=== PATIENT | male | born 1965 | race Asian ===

== ENCOUNTER → 2018-07-28 | Outpatient (CLI) | payer BC ==
[2018-07-28 10:04] LABS: ALBUMIN 3.9 GM/DL (3.2-5.2); ALBUMIN/GLOBULIN RATIO 1.08 (1.00-1.93); ALKALINE PHOSPHATASE 66 U/L (45-117); ALT/SGPT 85 U/L (12-78); ANION GAP 8 MEQ/L (8-16); AST/SGOT 36 U/L (7-37); BILIRUBIN,TOTAL 0.9 MG/DL (0.2-1.0); BLOOD UREA NITROGEN 15 MG/DL (7-18); CARBON DIOXIDE LEVEL 26 MEQ/L (21-32); CHLORIDE LEVEL 107 MEQ/L (98-107); CHOLESTEROL LEVEL 165 MG/DL (<200); CREATININE FOR GFR 1.02 MG/DL (0.70-1.30); GLOMERULAR FILTRATION RATE > 60.0 (>56); GLUCOSE, FASTING 97 MG/DL (70-100); HDL CHOLESTEROL 44 MG/DL (>40); LDL CHOLESTEROL 86 MG/DL (<100); NON-HDL-C 121 MG/DL; POTASSIUM SERUM 3.8 MEQ/L (3.5-5.1); SODIUM LEVEL 141 MEQ/L (136-145); TOTAL PROTEIN 7.5 GM/DL (6.4-8.2); TRIGLYCERIDES LEVEL 176 MG/DL (<150)
== END ==
LOC: M LAB 09:06
DX: E78.5 Hyperlipidemia, unspecified (principal); R74.0 Nonspecific elevation of levels of transaminase and lactic acid dehydrogenase [LDH]
CPT/HCPCS: 80053

== ENCOUNTER → 2018-11-19 | Outpatient (CLI) | payer BC ==
[~2018-11-19] MED LIST: ATOR1TAB21 PO; FENO160T10 PO; FINA1TAB12 PO; FISH100049 PO; GLUC500C5 PO
[2018-11-19 10:07] LABS: ALBUMIN 3.9 GM/DL (3.2-5.2); ALT/SGPT 93 U/L (12-78); BILIRUBIN,TOTAL 0.9 MG/DL (0.2-1.0); BLOOD UREA NITROGEN 19 MG/DL (7-18); CALCIUM LEVEL 9.2 MG/DL (8.5-10.1); CARBON DIOXIDE LEVEL 26 MEQ/L (21-32); CHLORIDE LEVEL 106 MEQ/L (98-107); CHOLESTEROL LEVEL 194 MG/DL (<200); CHOLESTEROL RISK RATIO 4.409 (<5); CREATININE FOR GFR 1.06 MG/DL (0.70-1.30); GLOMERULAR FILTRATION RATE > 60.0 (>56); GLUCOSE, FASTING 100 MG/DL (70-100); HDL CHOLESTEROL 44 MG/DL (>40); LDL CHOLESTEROL 124 MG/DL (<100); NON-HDL-C 150 MG/DL; SODIUM LEVEL 139 MEQ/L (136-145); TOTAL PROTEIN 7.6 GM/DL (6.4-8.2); TRIGLYCERIDES LEVEL 131 MG/DL (<150)
== END ==
LOC: M LAB 08:39
PROVIDERS: ATTEND Internal Medicine
DX: E78.5 Hyperlipidemia, unspecified (principal)

== ENCOUNTER → 2019-02-23 | Outpatient (CLI) | payer BC ==
[2019-02-23 10:51] LABS: ALT/SGPT 139 U/L (12-78); BILIRUBIN,TOTAL 0.8 MG/DL (0.2-1.0); BLOOD UREA NITROGEN 14 MG/DL (7-18); CALCIUM LEVEL 8.9 MG/DL (8.5-10.1); CARBON DIOXIDE LEVEL 26 MEQ/L (21-32); CHLORIDE LEVEL 108 MEQ/L (98-107); CHOLESTEROL LEVEL 175 MG/DL (<200); CREATININE FOR GFR 1.05 MG/DL (0.70-1.30); GLOMERULAR FILTRATION RATE > 60.0 (>56); GLUCOSE, FASTING 113 MG/DL (70-100); HDL CHOLESTEROL 45 MG/DL (>40); POTASSIUM SERUM 3.6 MEQ/L (3.5-5.1); SODIUM LEVEL 140 MEQ/L (136-145); TRIGLYCERIDES LEVEL 111 MG/DL (<150)
[2019-02-23 10:52] LABS: ALBUMIN 3.9 GM/DL (3.2-5.2); CHOLESTEROL RISK RATIO 3.888 (<5); LDL CHOLESTEROL 108 MG/DL (<100); NON-HDL-C 130 MG/DL; TOTAL PROTEIN 7.7 GM/DL (6.4-8.2)
== END ==
LOC: M LAB 09:35
PROVIDERS: ATTEND Internal Medicine
DX: E78.5 Hyperlipidemia, unspecified (principal); R74.0 Nonspecific elevation of levels of transaminase and lactic acid dehydrogenase [LDH]

== ENCOUNTER → 2019-03-18 | Outpatient (CLI) | payer BC ==
--- NOTE | 2019-03-18 07:41 | REP ---
Clinical: Abnormal liver function tests and elevated transaminase levels. Technique: Real time thompson scale ultrasound examination using curved array transducer. Comparison: 12/20/2009 Findings: Liver is markedly increased echogenicity with decreased through transmission suggesting fatty infiltration and/or hepatocellular disease. The pancreas is incompletely evaluated due to technical factors. Main portal vein measures 17 mm diameter and is slightly increased from normal. The gallbladder is without gallstones, wall thickening, or pericholecystic fluid. A small 4 mm gallbladder polyp is suggested. No biliary ductal dilatation is identified and the common bile duct measures 6 mm diameter. Right kidney is normal in reniform shape without hydronephrosis and measures 10.6 x 6.5 x 5.7 cm. Visualized abdominal aorta normal. No ascites. Impression: Hepatic steatosis and hepatocellular disease suspected. 4 mm nonspecific gallbladder polyp. Electronically Signed by Mauricio Bateman MD 03/18/2019 07:32 A
== END ==
LOC: M RAD 06:43
PROVIDERS: ATTEND Internal Medicine
DX: R74.0 Nonspecific elevation of levels of transaminase and lactic acid dehydrogenase [LDH] (principal); K82.4 Cholesterolosis of gallbladder

== ENCOUNTER → 2019-08-31 | Outpatient (CLI) | payer BC ==
[2019-08-31 09:14] LABS: ALBUMIN 3.6 GM/DL (3.2-5.2); ALT/SGPT 89 U/L (12-78); BILIRUBIN,TOTAL 0.7 MG/DL (0.2-1.0); BLOOD UREA NITROGEN 12 MG/DL (7-18); CALCIUM LEVEL 8.9 MG/DL (8.5-10.1); CARBON DIOXIDE LEVEL 23 MEQ/L (21-32); CHLORIDE LEVEL 110 MEQ/L (98-107); CHOLESTEROL LEVEL 172 MG/DL (<200); CHOLESTEROL RISK RATIO 3.822 (<5); CREATININE FOR GFR 0.97 MG/DL (0.70-1.30); GLOMERULAR FILTRATION RATE > 60.0 (>56); GLUCOSE, FASTING 95 MG/DL (70-100); HDL CHOLESTEROL 45 MG/DL (>40); LDL CHOLESTEROL 94 MG/DL (<100); NON-HDL-C 127 MG/DL; POTASSIUM SERUM 3.7 MEQ/L (3.5-5.1); SODIUM LEVEL 141 MEQ/L (136-145); TOTAL PROTEIN 7.2 GM/DL (6.4-8.2); TRIGLYCERIDES LEVEL 165 MG/DL (<150)
== END ==
LOC: M LAB 08:05
PROVIDERS: ATTEND Internal Medicine
DX: E78.5 Hyperlipidemia, unspecified (principal); R74.0 Nonspecific elevation of levels of transaminase and lactic acid dehydrogenase [LDH]

== ENCOUNTER → 2020-07-30 | Outpatient (REF) | payer SELFPAY | LOC: M LABSMTC 07-28 08:14 → EDSTATUS 11:10 → M LABSMTC 14:37 | PROVIDERS: ATTEND Pediatrics | DX: Z20.828 Contact with and (suspected) exposure to other viral communicable diseases (principal) ==

== ENCOUNTER → 2020-08-27 | Outpatient (CLI) | payer BC ==
[2020-08-27 11:01] LABS: ALT/SGPT 98 U/L (12-78); BILIRUBIN,TOTAL 0.8 MG/DL (0.2-1.0); BLOOD UREA NITROGEN 12 MG/DL (7-18); CALCIUM LEVEL 9.4 MG/DL (8.5-10.1); CARBON DIOXIDE LEVEL 26 MEQ/L (21-32); CHLORIDE LEVEL 108 MEQ/L (98-107); CHOLESTEROL LEVEL 198 MG/DL (<200); CHOLESTEROL RISK RATIO 3.666 (<5); CREATININE FOR GFR 1.06 MG/DL (0.70-1.30); GLOMERULAR FILTRATION RATE > 60.0 (>56); GLUCOSE, FASTING 115 MG/DL (70-100); HDL CHOLESTEROL 54 MG/DL (>40); LDL CHOLESTEROL 112 MG/DL (<100); NON-HDL-C 144 MG/DL; SODIUM LEVEL 139 MEQ/L (136-145); TOTAL PROTEIN 7.7 GM/DL (6.4-8.2); TRIGLYCERIDES LEVEL 159 MG/DL (<150)
== END ==
LOC: M LAB 10:01
PROVIDERS: ATTEND Internal Medicine
DX: E78.5 Hyperlipidemia, unspecified (principal)

== ENCOUNTER → 2020-10-20 | Outpatient (CLI) | payer BC ==
[~2020-10-20] MED LIST changes: +FISH1000 PO; +GNP1000T11 PO; +LOSA25TA14 PO
== END ==
LOC: M LABSMTC 08:19
PROVIDERS: ATTEND Anesthesiology
DX: Z01.812 Encounter for preprocedural laboratory examination (principal); Z20.822 Contact with and (suspected) exposure to COVID-19

== ENCOUNTER 2020-10-25 09:42 | Day surgery (SDC) | payer BC ==
[~2020-10-25] VITALS: Ht 165.1 cm; Wt 90.7 kg
[~2020-10-25 09:42] MED LIST changes: +LIDOCAINE 2% 100MG/5ML SDV (FOR ANES.) As Ordered ONE; +NS 1,000 ML IV ONE; +fentaNYL 100 MCG/2 ML INJECTION (J3010) As Ordered ONE; +propofoL 200 MG/20 ML VIAL As Ordered ONE
--- NOTE | 2020-10-25 11:36 | ROOR ---
Patient Name: Inga Aceves Procedure Date: 10/25/2020 11:22 AM Date of : 1965 Age: 55 Room: [facility] Gender: Male Note Status: Finalized Procedure: Upper GI endoscopy Indications: Heartburn, Nausea Providers: Daniel SCHMIDT MD Referring MD: MADHAVI ROONEY MD Requesting Provider: Medicines: Monitored Anesthesia Care Complications: No immediate complications. Procedure: Pre-Anesthesia Assessment: - The heart rate, respiratory rate, oxygen saturations, blood pressure, adequacy of pulmonary ventilation, and response to care were monitored throughout the procedure. The Endoscope was introduced through the mouth, and advanced to the second part of duodenum. The upper GI endoscopy was accomplished without difficulty. The patient tolerated the procedure well. Findings: Mild esophagitis was found at the gastroesophageal junction. Biopsies were taken with a cold forceps for histology. The exam of the esophagus was otherwise normal. The entire examined stomach was normal. Biopsies were taken with a cold forceps for Helicobacter pylori testing. The examined duodenum was normal. Impression: - Mild reflux esophagitis. Biopsied. - Otherwise normal esophagus. - Normal stomach. Biopsied. - Normal examined duodenum. Recommendation: - Follow an antireflux regimen. - Use Prilosec (omeprazole) 20 mg PO daily for 3 months. - (the script was sent to your pharmacy on file) Procedure Code(s): --- Professional --- 09631, Esophagogastroduodenoscopy, flexible, transoral; with biopsy, single or multiple Diagnosis Code(s): --- Professional --- R11.0, Nausea R12, Heartburn K20.9, Esophagitis, unspecified CPT copyright 2019 [employer]. All rights reserved. The codes documented in this report are preliminary and upon ion exchange operator review may be revised to meet current compliance requirements. Daniel Schmidt MD Daniel SCHMIDT MD 10/25/2020 11:36:07 AM Electronically signed by Daniel SCHMIDT MD Number of Addenda: 0 Note Initiated On: 10/25/2020 11:22 AM Estimated Blood Loss: Estimated blood loss: none.
[2020-10-25] MEDS ORDERED: ePHEDrine SULFATE 25 MG/5 ML(5MG/ML) SYRINGE As Ordered ONE (11:40)
--- NOTE | 2020-10-25 12:25 | ROOR ---
Patient Name: Inga Aceves Procedure Date: 10/25/2020 11:22 AM Date of : 1965 Age: 55 Room: [facility] Gender: Male Note Status: Finalized Procedure: Colonoscopy Indications: High risk colon cancer surveillance: Personal history of colonic polyps, Last colonoscopy: July 2015 Providers: Daniel SCHMIDT MD Referring MD: MADHAVI ROONEY MD Requesting Provider: Medicines: Monitored Anesthesia Care Complications: No immediate complications. Procedure: Pre-Anesthesia Assessment: - The heart rate, respiratory rate, oxygen saturations, blood pressure, adequacy of pulmonary ventilation, and response to care were monitored throughout the procedure. The Colonoscope was introduced through the anus and advanced to the cecum, identified by appendiceal orifice and ileocecal valve. The Colonoscope was introduced through the anus and advanced to the cecum, identified by appendiceal orifice and ileocecal valve. The colonoscopy was somewhat difficult due to a redundant colon. Successful completion of the procedure was aided by changing the patient's position and changing endoscopes. The patient tolerated the procedure well. The quality of the bowel preparation was good. Findings: The perianal and digital rectal examinations were normal. A localized area of granular mucosa and spasm was found in the cecum. Biopsies were taken with a cold forceps for histology. Multiple medium-mouthed diverticula were found in the sigmoid colon and descending colon. Small Internal Hemorrhoids. Impression: - An area of spasm and mucosal granularity in the cecum (suspect benign prolapsing ileal mucosa). Biopsied. - Diverticulosis in the sigmoid colon and in the descending colon. - Small Internal Hemorrhoids. - The colon is otherwise normal. Recommendation: - Await pathology results. - In view of slightly suboptimal visualisation of the ileo cecal area (spasm/prolapsing ileal mucosa), would suggest a repeat colonoscopy in about 2-3 years. To be discussed after biopsies reviewed. Procedure Code(s): --- Professional --- 55338, Colonoscopy, flexible; with biopsy, single or multiple Diagnosis Code(s): --- Professional --- K57.30, Diverticulosis of large intestine without perforation or abscess without bleeding K63.89, Other specified diseases of intestine Z86.010, Personal history of colonic polyps CPT copyright 2019 [employer]. All rights reserved. The codes documented in this report are preliminary and upon carnallite plant operator review may be revised to meet current compliance requirements. Daniel Schmidt MD Daniel SCHMIDT MD 10/25/2020 12:24:57 PM Electronically signed by Daniel SCHMIDT MD Number of Addenda: 0 Note Initiated On: 10/25/2020 11:22 AM Estimated Blood Loss: Estimated blood loss: none.
[2020-10-25] MEDS ORDERED: propofoL 200 MG/20 ML VIAL As Ordered ONE (12:28)
[2020-10-25 12:45] VITALS: BP 145/87
== END 2020-10-25 12:58 | disposition home or self-care (01) ==
LOC: M OPP 09:42
PROVIDERS: ATTEND Internal Medicine Gastroenterology
DX: Z12.11 Encounter for screening for malignant neoplasm of colon (principal); Z86.010 Personal history of colon polyps; K63.89 Other specified diseases of intestine; K57.30 Diverticulosis of large intestine without perforation or abscess without bleeding; K64.8 Other hemorrhoids; K20.90 Esophagitis, unspecified without bleeding; R12 Heartburn; R11.0 Nausea; Z79.899 Other long term (current) drug therapy
CPT/HCPCS: 43239; 45380; 88305; 88342; J3010

== ENCOUNTER → 2020-12-24 | Outpatient (REF) | payer BC ==
[~2020-12-24] MED LIST changes: -LIDOCAINE 2% 100MG/5ML SDV (FOR ANES.) As Ordered ONE; -NS 1,000 ML IV ONE; -fentaNYL 100 MCG/2 ML INJECTION (J3010) As Ordered ONE; -propofoL 200 MG/20 ML VIAL As Ordered ONE
== END ==
LOC: M LAB REF 08:52
PROVIDERS: ATTEND Physician Assistant Medical
DX: B96.81 Helicobacter pylori [H. pylori] as the cause of diseases classified elsewhere (principal)

== ENCOUNTER → 2021-01-01 | Outpatient (REF) | LOC: M LABSMTC 10:30 | PROVIDERS: ATTEND Pediatrics | DX: Z20.828 Contact with and (suspected) exposure to other viral communicable diseases (principal) ==

== ENCOUNTER → 2021-01-03 | Outpatient (CLI) | payer BC ==
--- NOTE | 2021-01-03 13:13 | REP ---
INDICATION: ACUTE BRONCHITIS COMPARISON: None. TECHNIQUE: PA and lateral. FINDINGS: The mediastinum and cardiac silhouette are normal. The lung elam are clear and without acute consolidation, effusion, or pneumothorax. The skeletal structures are intact and normal. IMPRESSION: No acute cardiopulmonary process. <Electronically signed by Mauricio Bateman > 01/03/21 [id number]
== END ==
LOC: M WUC 12:08
PROVIDERS: ATTEND Internal Medicine
DX: J20.9 Acute bronchitis, unspecified (principal)

== ENCOUNTER → 2021-05-11 | Outpatient (REF) | LOC: M LABSMTC 09:59 | PROVIDERS: ATTEND Family Medicine | DX: Z20.822 Contact with and (suspected) exposure to COVID-19 (principal) ==

== ENCOUNTER → 2022-06-20 | Outpatient (REF) ==
[~2022-06-20] MED LIST changes: +LOSA25TA13 PO; -LOSA25TA14 PO
== END ==
LOC: M EMP 09:10
PROVIDERS: ATTEND Family Medicine
DX: Z20.822 Contact with and (suspected) exposure to COVID-19 (principal)

== ENCOUNTER → 2022-10-09 | Outpatient (REF) | LOC: M EMP 08:32 | PROVIDERS: ATTEND Family Medicine | DX: Z11.52 Encounter for screening for COVID-19 (principal) ==

== ENCOUNTER → 2022-10-31 | Outpatient (CLI) | payer BC ==
[2022-10-31 10:50] LABS: ALBUMIN 3.9 G/DL (3.2-5.2); ALKALINE PHOSPHATASE 50 U/L (46-116); ALT/SGPT 71 U/L (7.0-40); AST/SGOT 34 U/L (<34); BILIRUBIN,TOTAL 0.9 MG/DL (0.3-1.2); BLOOD UREA NITROGEN 15 MG/DL (9-23); CALCIUM LEVEL 9.3 MG/DL (8.5-10.1); CARBON DIOXIDE LEVEL 26 MMOL/L (20-31); CHLORIDE LEVEL 106 MMOL/L (98-107); CHOLESTEROL LEVEL 139 MG/DL (<200); CHOLESTEROL RISK RATIO 2.86 (<5); CREATININE FOR GFR 0.84 MG/DL (0.70-1.30); GLOMERULAR FILTRATION RATE > 60.0 (>56); GLUCOSE, FASTING 101 MG/DL (60-100); HDL CHOLESTEROL 48.5 MG/DL (>40); LDL CHOLESTEROL 73.9 MG/DL (<100); NON-HDL-C 90.5 MG/DL; POTASSIUM SERUM 4.2 MMOL/L (3.5-5.1); SODIUM LEVEL 139 MMOL/L (136-145); TOTAL PROTEIN 7.1 G/DL (5.7-8.2); TRIGLYCERIDES LEVEL 83 MG/DL (<150)
== END ==
LOC: M LAB 09:35
PROVIDERS: ATTEND Internal Medicine
DX: R73.01 Impaired fasting glucose (principal); E78.5 Hyperlipidemia, unspecified

== ENCOUNTER → 2023-04-13 | Outpatient (CLI) | payer OTHER | LOC: M RAD 07:12 | PROVIDERS: ATTEND Orthopaedic Surgery | DX: M75.42 Impingement syndrome of left shoulder (principal); M94.212 Chondromalacia, left shoulder; M25.412 Effusion, left shoulder; M77.8 Other enthesopathies, not elsewhere classified ==

== ENCOUNTER → 2023-04-24 | Outpatient (CLI) | payer BC ==
[2023-04-24 10:52] LABS: ALBUMIN 4.1 G/DL (3.2-5.2); ALKALINE PHOSPHATASE 57 U/L (46-116); ALT/SGPT 63 U/L (7.0-40); AST/SGOT 27 U/L (<34); BILIRUBIN,TOTAL 1.2 MG/DL (0.3-1.2); BLOOD UREA NITROGEN 16 MG/DL (9-23); CALCIUM LEVEL 9.6 MG/DL (8.5-10.1); CARBON DIOXIDE LEVEL 25 MMOL/L (20-31); CHLORIDE LEVEL 106 MMOL/L (98-107); CHOLESTEROL LEVEL 160 MG/DL (<200); CHOLESTEROL RISK RATIO 3.27 (<5); CREATININE FOR GFR 0.85 MG/DL (0.70-1.30); GLOMERULAR FILTRATION RATE > 60.0 (>56); GLUCOSE, FASTING 95 MG/DL (60-100); HDL CHOLESTEROL 48.8 MG/DL (>40); LDL CHOLESTEROL 86.4 MG/DL (<100); NON-HDL-C 111.2 MG/DL; POTASSIUM SERUM 3.8 MMOL/L (3.5-5.1); SODIUM LEVEL 140 MMOL/L (136-145); TOTAL PROTEIN 7.3 G/DL (5.7-8.2); TRIGLYCERIDES LEVEL 124 MG/DL (<150)
== END ==
LOC: M LAB 08:53
PROVIDERS: ATTEND Internal Medicine
DX: E78.5 Hyperlipidemia, unspecified (principal); R74.01 Elevation of levels of liver transaminase levels; I10 Essential (primary) hypertension

== ENCOUNTER 2023-08-11 06:55 | Day surgery (SDC) | payer BC ==
[~2023-08-11] VITALS: Ht 162.6 cm; Wt 89.0 kg
[~2023-08-11 06:55] MED LIST changes: +NS 1,000 ML IV ONE; +OMEG10002 PO; +TAMS1CAP17 PO; +THERTAB52 PO
[2023-08-11] MEDS ORDERED: propofoL 200 MG/20 ML VIAL As Ordered ONE (07:26)
[2023-08-11] MEDS ORDERED: LIDOCAINE 2% 100MG/5ML SDV (FOR ANES.) As Ordered ONE (07:26)
[2023-08-11 07:52] VITALS: TEMP 97.3
[2023-08-11 08:10] VITALS: BP 122/81; O2SAT 93
== END 2023-08-11 08:18 | disposition home or self-care (01) ==
LOC: M OPP 06:55
PROVIDERS: ATTEND Internal Medicine Gastroenterology
DX: Z12.11 Encounter for screening for malignant neoplasm of colon (principal); Z86.010 Personal history of colon polyps; K64.8 Other hemorrhoids; K57.30 Diverticulosis of large intestine without perforation or abscess without bleeding; G47.30 Sleep apnea, unspecified; Z99.89 Dependence on other enabling machines and devices; Z79.02 Long term (current) use of antithrombotics/antiplatelets; Z79.1 Long term (current) use of non-steroidal anti-inflammatories (NSAID); Z79.83 Long term (current) use of bisphosphonates; Z79.899 Other long term (current) drug therapy; Z88.1 Allergy status to other antibiotic agents

== ENCOUNTER → 2023-10-07 | Outpatient (REF) ==
[~2023-10-07] MED LIST changes: -NS 1,000 ML IV ONE
== END ==
LOC: M EMP 11:03
PROVIDERS: ATTEND Family Medicine
DX: Z11.52 Encounter for screening for COVID-19 (principal)

== ENCOUNTER → 2023-11-03 | Outpatient (CLI) | payer BC ==
[2023-11-03 10:46] LABS: PROSTATIC SPECIFIC AG MONITOR 0.21 NG/ML (< 4.00)
[2023-11-03 10:48] LABS: ALBUMIN 4.1 G/DL (3.2-5.2); ALKALINE PHOSPHATASE 59 U/L (46-116); ALT/SGPT 88 U/L (7.0-40); AST/SGOT 45 U/L (<34); BILIRUBIN,TOTAL 0.9 MG/DL (0.3-1.2); BLOOD UREA NITROGEN 19 MG/DL (9-23); CALCIUM LEVEL 9.2 MG/DL (8.5-10.1); CARBON DIOXIDE LEVEL 24 MMOL/L (20-31); CHLORIDE LEVEL 110 MMOL/L (98-107); CHOLESTEROL LEVEL 162 MG/DL (<200); CHOLESTEROL RISK RATIO 3.21 (<5); CREATININE FOR GFR 0.95 MG/DL (0.70-1.30); GLOMERULAR FILTRATION RATE > 60.0 (>56); HDL CHOLESTEROL 50.4 MG/DL (>40); NON-HDL-C 111.6 MG/DL; POTASSIUM SERUM 3.8 MMOL/L (3.5-5.1); SODIUM LEVEL 137 MMOL/L (136-145); TOTAL PROTEIN 7.3 G/DL (5.7-8.2); TRIGLYCERIDES LEVEL 83 MG/DL (<150)
[2023-11-04 14:15] LABS: GLUCOSE, FASTING 98 MG/DL (60-100)
== END ==
LOC: M LAB 09:26
PROVIDERS: ATTEND Internal Medicine
DX: R74.01 Elevation of levels of liver transaminase levels (principal); E78.5 Hyperlipidemia, unspecified; N40.1 Benign prostatic hyperplasia with lower urinary tract symptoms

== ENCOUNTER → 2024-03-07 | Outpatient (CLI) | payer BC ==
[~2024-03-07] MED LIST changes: -FINA1TAB12 PO; +FINA1TAB4 PO
== END ==
LOC: M SLEEP 20:00
PROVIDERS: ATTEND Physician Assistant
DX: G47.33 Obstructive sleep apnea (adult) (pediatric) (principal)

== ENCOUNTER → 2024-03-25 | Outpatient (REF) | LOC: M EMP 14:35 | PROVIDERS: ATTEND Family Medicine | DX: Z11.52 Encounter for screening for COVID-19 (principal) ==

== ENCOUNTER → 2024-05-11 | Outpatient (CLI) | payer BC ==
[2024-05-11 13:11] LABS: ALBUMIN 3.9 G/DL (3.2-5.2); ALKALINE PHOSPHATASE 63 U/L (46-116); ALT/SGPT 108 U/L (7.0-40); AST/SGOT 49 U/L (<34); BILIRUBIN,TOTAL 0.8 MG/DL (0.3-1.2); BLOOD UREA NITROGEN 17 MG/DL (9-23); CALCIUM LEVEL 9.6 MG/DL (8.5-10.1); CARBON DIOXIDE LEVEL 24 MMOL/L (20-31); CHLORIDE LEVEL 109 MMOL/L (98-107); CHOLESTEROL LEVEL 168 MG/DL (<200); CHOLESTEROL RISK RATIO 3.62 (<5); CREATININE FOR GFR 0.91 MG/DL (0.70-1.30); GLOMERULAR FILTRATION RATE > 60.0 (>56); GLUCOSE, FASTING 91 MG/DL (60-100); HDL CHOLESTEROL 46.4 MG/DL (>40); LDL CHOLESTEROL 101.6 MG/DL (<100); NON-HDL-C 121.6 MG/DL; POTASSIUM SERUM 4.1 MMOL/L (3.5-5.1); SODIUM LEVEL 141 MMOL/L (136-145); TOTAL PROTEIN 7.2 G/DL (5.7-8.2); TRIGLYCERIDES LEVEL 100 MG/DL (<150)
== END ==
LOC: M LAB 10:46
PROVIDERS: ATTEND Internal Medicine
DX: E78.5 Hyperlipidemia, unspecified (principal)

== ENCOUNTER → 2024-10-28 | Outpatient (CLI) | payer BC ==
[2024-10-28 10:04] LABS: ALBUMIN 4.1 G/DL (3.2-5.2); ALKALINE PHOSPHATASE 63 U/L (40-129); ALT/SGPT 72 U/L (7.0-40); AST/SGOT 35 U/L (<34); BILIRUBIN,TOTAL 0.8 MG/DL (0.3-1.2); BLOOD UREA NITROGEN 21 MG/DL (9-23); CALCIUM LEVEL 9.6 MG/DL (8.5-10.1); CARBON DIOXIDE LEVEL 23 MMOL/L (20-31); CHLORIDE LEVEL 108 MMOL/L (98-107); CHOLESTEROL LEVEL 164 MG/DL (<200); CHOLESTEROL RISK RATIO 3.21 (<5); GLOMERULAR FILTRATION RATE > 60.0 (>56); SODIUM LEVEL 141 MMOL/L (136-145); TOTAL PROTEIN 7.6 G/DL (5.7-8.2); TRIGLYCERIDES LEVEL 90 MG/DL (<150)
[2024-10-31 07:20] LABS: GLUCOSE, FASTING 87 MG/DL (60-100)
== END ==
LOC: M LAB 08:03
PROVIDERS: ATTEND Internal Medicine
DX: E78.5 Hyperlipidemia, unspecified (principal); R74.01 Elevation of levels of liver transaminase levels; I10 Essential (primary) hypertension

== ENCOUNTER → 2025-04-30 | Outpatient (REF) | payer BC | LOC: M LAB REF 18:32 | PROVIDERS: ATTEND Physician Assistant Medical | DX: B34.9 Viral infection, unspecified (principal) ==